=== PATIENT | female | born 2000 | race Caucasian/White ===

== ENCOUNTER 2020-10-16 16:14 | Emergency (ER) | payer OTHER, MEDICAID, SELFPAY ==
[2020-10-16 16:15] VITALS: BP 113/72; PULSE 72; RESP 18; TEMP 36.7; O2SAT 94; BMI 22.3
--- NOTE | 2020-10-16 17:20 | EX.ED.GENINJ ---
HPI History of Present Illness Chief Complaint: Fall Informant: patient Onset/Context/Timing Onset: Today Mechanism/Context: Fall Narrative Narrative: Patient is a 19-year-old female presenting with left-sided rib pain. Around 1 PM today she tripped after she was trying to avoid stepping on her cat and landed on her coffee table. She had her left ribs. Since then she is had significant pain. She has not taken anything for pain. It is worse when she moves or takes a deep breath. Denies hitting her head. No other injuries reported. Is not on any blood thinners. Is not concerned for . PFSH PFSH Medical History Anxiety Former smoker Home Medications ibuprofen 600 mg PO Q6H PRN PRN #20 tab 10/16/20 [Rx Last Taken Unknown] lidocaine 1 patch TOPICAL DAILY PRN #10 ea 10/16/20 [Rx Last Taken Unknown] [id number]-vit K [Multi For Her] 1 tab-cap PO DAILY 10/16/20 [History Last Taken Unknown] Allergy/AdvReac Type Severity Reaction Status Date / Time No Known Allergies Allergy Verified 10/16/20 16:18 Social History Smoking Status: Former smoker ROS ROS ED Constitutional Constitutional ED: Denies chills or fever(s) Eyes Eyes: Denies change in vision ENT ENT ED: Denies rhinorrhea or sore throat Cardiovascular Cardiovascular: Reports chest pain; Denies palpitations Respiratory/Chest Respiratory/Chest: Denies cough or dyspnea Gastrointestinal Gastrointestinal: Denies abdominal pain or nausea Musculoskeletal Musculoskeletal: Denies arthralgias or myalgias Integumentary Denies Abrasions or rash Neurologic Neurologic: Denies headache(s) EXAM Physical Exam Const Vital Signs: 10/16/20 16:15 10/16/20 17:01 10/16/20 18:45 Temperature 98.1 F Temperature Source Temporal Pulse Rate 72 79 Respiratory Rate 18 16 Respiratory Effort Normal Respiratory Depth Normal Respiratory Pattern Normal Blood Pressure 113/72 124/78 H Blood Pressure Mean 85 Pulse Ox 94 97 Oxygen Delivery Method Room Air Room Air Positive well nourished and well developed General Appearance ED: well developed HEENT atraumatic; Negative for tenderness Eyes PERRL and EOMs intact bilaterally Neck full ROM Chest Wall inspection of chest normal Chest Narrative: Significant tenderness palpation of the left lower anterior and mid axillary line ribs. No crepitus of the chest wall appreciated. No flail chest appreciated. Resp normal respiratory effort and clear to auscultation bilaterally Auscultation: Negative for diminished lung sounds Cardio regular rhythm and no murmurs Rate: regular rate GI normal to inspection, nondistended, normoactive bowel sounds Back/Spine normal to inspection and no thoracic nor lumbar tenderness General Back: Negative for CVA tenderness Extremity normal to inspection and full ROM Neuro oriented x3, CN's II-XII intact bilaterally and no focal motor deficits Sensorium / Orientation: alert Psych mental status grossly normal Skin Skin Narrative: Subtle developing bruising to the left ribs in area of pain MDM MDM MDM Narrative Medical decision making narrative: Patient is evaluated for left-sided rib pain. X-ray interpreted myself as well as radiology does not show any acute process including fracture. Is possible she could have a small fracture is not showing up versus rib contusion. She will be treated with NSAIDs, Lidoderm patches and incentive spirometer. Counseled on the risk of pneumonia. Counseled that the treatment is pain control and deep breathing. Patient given return precautions. Discharged home in stable condition. Radiography X-Ray: Read by ED Physician, Read by Radiologist and No Fracture Diagnostic Testing: Radiology Impression Ribs w/Chest X-Ray 10/16/20 17:25 IMPRESSION: RIBS: Normal x-ray examination of the ribs. CHEST: Normal x-ray examination of the chest. Electronically Signed: Rogelio Castro MD at 18:06 EDT , Service support , Discharge Plan Triage Chief Complaint: Fall ED Provider: Payton Garcia Dx/Rx/DC Orders Clinical Impression: Contusion of rib on left side Instructions: ED Contusion, Rib Prescriptions: New lidocaine 4 % adhesive patch,medicated 1 patch topical DAILY PRN (Reason: pain) Qty: 10 RF: 0 ibuprofen 600 mg tablet 600 mg PO Q6H PRN PRN (Reason: Pain Score 1-10/10) Qty: 20 RF: 0 No Action Multi For Her 18 mg iron-600 mcg-40 mcg Capsule 1 tab-cap PO DAILY RF: 0 Stand Alone Forms: ED Work / School Excuse, Work Status Form Primary Care Provider: Care Physician,No Primary Referrals: Marisela Sahu DO [STAFF PHYSICIAN] - Care Physician,No Primary [Primary Care Provider] - Disposition Disposition: Home, Self Care Discharge Date/Time: 10/16/20 18:46
--- NOTE | 2020-10-16 17:25 | RAD_ITS ---
STUDY: X-RAY - UNILATERAL RIBS ( LEFT ) WITH CHEST REASON FOR EXAM: Female, 19 years old. left rib injury TECHNIQUE - RIBS: 4 view(s) of the ribs. TECHNIQUE - CHEST: Single frontal view of the chest. COMPARISON: None. FINDINGS - RIBS: Normal visualized ribs without a demonstrated fracture. FINDINGS - CHEST: The lungs are clear and expanded. There is no demonstrated pleural abnormality. Normal size heart. Normal mediastinum and tomas. Normal visualized pulmonary arteries. Normal visualized aortic arch and descending thoracic aorta. Normal visualized thoracic spine. Normal visualized ribs, clavicles, and shoulders. There is no demonstrated abnormality of the visualized soft tissue structures of the upper abdomen. RAD/Ribs Uni Min 3V w/PA Chest IMPRESSION: RIBS: Normal x-ray examination of the ribs. CHEST: Normal x-ray examination of the chest. Electronically Signed: Rogelio Castro MD at 18:06 EDT , Service support ,
[2020-10-16] MEDS: Ibuprofen 600 MG Tablet PO (18:05)
[2020-10-16] MEDS: Lidocaine 5% Patch 1 PATCH TOPICAL (18:06)
[2020-10-16 18:45] VITALS: BP 124/78; PULSE 79; RESP 16; O2SAT 97
--- NOTE | 2020-10-16 18:46 | ED.RN ---
THIS NURSE REVIEWED D/C INSTRUCTIONS WITH PT. PT VERBALIZED UNDERSTANDING OF INSTRUCTIONS. PT DENIES FURTHER NEEDS OR QUESTIONS AT THIS TIME
== END 2020-10-16 18:46 | disposition home or self-care (01) ==
PROVIDERS: Emergency Provider Emergency Medicine
DX: S20.212A Contusion of left front wall of thorax, initial encounter (principal); W18.40XA Slipping, tripping and stumbling without falling, unspecified, initial encounter
CPT/HCPCS: 71101; 99284

== ENCOUNTER 2021-11-10 12:31 | Emergency (ER) | payer OTHER, MEDICAID, SELFPAY ==
[2021-11-10 12:33] VITALS: BP 115/56; PULSE 95; RESP 16; TEMP 38.3; O2SAT 98; BMI 25.7
[2021-11-10 12:35] VITALS: BP 115/56; PULSE 95; RESP 16; TEMP 38.3; O2SAT 98
[2021-11-10] MEDS: Ketorolac 60 MG/2 ML Vial IM (14:11)
[2021-11-10] MEDS: Ondansetron ODT 4 MG Tablet PO (14:12)
--- NOTE | 2021-11-10 14:17 | EX.ED.DYSGE1 ---
HPI History of Present Illness Chief Complaint: Headache Informant: patient Narrative Narrative: 21-year-old female presenting to the emergency room with body aches. She tells me that she became symptomatic yesterday with a headache little bit of a sinus infection and eventually progressed to whole body aches. She states she has had COVID 2 previous times and never felt like this. She denies vomiting and diarrhea. She does note some nausea. PFSH PFSH Medical History Anxiety Former smoker Home Medications ibuprofen 600 mg tablet 600 mg PO Q6H PRN PRN Pain Score 1-10/10 #20 tabs 10/16/20 [Rx Last Taken Unknown] lidocaine 4 % topical patch 1 patch topical DAILY PRN pain #10 ea 10/16/20 [Rx Last Taken Unknown] [id number]-[id number] fumarate 18 mg-FA 600 mcg-vit K 40 mcg capsule (Multi For Her) 1 tab-cap PO DAILY 10/16/20 [History Last Taken Unknown] ondansetron HCl 4 mg tablet 4 mg PO Q6H PRN nausea and vomiting #15 tabs 11/10/21 [Rx Last Taken Unknown] Allergy/AdvReac Type Severity Reaction Status Date / Time No Known Allergies Allergy Verified 11/10/21 12:36 Social History (Updated 11/10/21 @ 14:[address] Delta Ardon, DO) Smoking Status: Former smoker substance use type: does not use ROS ROS ED Constitutional Constitutional ED: Reports fever(s) and sweats; Denies chills or weight loss Eyes Eyes: Denies change in vision or diplopia ENT ENT ED: Reports rhinorrhea; Denies ear pain or sore throat Cardiovascular Cardiovascular: Denies chest pain, orthopnea, palpitations or racing heartbeat Respiratory/Chest Respiratory/Chest: Denies cough, dyspnea or orthopnea Gastrointestinal Gastrointestinal: Denies abdominal pain, diarrhea, nausea or vomiting Genitourinary Genitourinary ED: Denies dysuria, hematuria or urinary frequency Musculoskeletal Musculoskeletal: Reports arthralgias and myalgias Integumentary Denies abscess or rash Neurologic Neurologic: Reports headache(s); Denies weakness Psychiatric Psychiatric: Denies anxiety, depression, suicidal ideation or suicidal thoughts Endocrine Endocrinology: Denies polydipsia, polyphagia or polyuria Allergic/Immunologic Allergic/Immunologic ED: Denies mouth swelling, tongue swelling or urticaria EXAM Physical Exam Const Vital Signs: 11/10/21 12:33 11/10/21 12:35 Temperature 101 F H 101 F H Temperature Source Temporal Temporal Pulse Rate 95 95 Respiratory Rate 16 16 Blood Pressure 115/56 L 115/56 L Blood Pressure Mean 75 75 Pulse Ox 98 98 Oxygen Delivery Method Room Air Room Air Positive well nourished and well developed General Appearance ED: well developed HEENT Reports normocephalic, head/scalp atraumatic and moist mucous membranes Eyes PERRL and EOMs intact bilaterally Neck no lymphadenopathy, supple and no JVD Resp normal respiratory effort and clear to auscultation bilaterally Cardio regular rate, regular rhythm and no murmurs GI normal to inspection, nondistended, normoactive bowel sounds and non-tender Palpation: soft Back/Spine no CVA tenderness and normal ROM Extremity normal to inspection General Extremety ED: Negative for edema General Extremity: Negative for edema Neuro oriented x3 and CN's II-XII intact bilaterally Sensorium / Orientation: alert Motor Exam: strength 5/5 throughout Psych mental status grossly normal Mood & Affect: Negative for depressed or tearful Skin no rashes or lesions noted and no wounds MDM MDM MDM Narrative Medical decision making narrative: Patient tested positive for COVID-19. We administered Toradol for pain and Zofran for nausea. I will write for some Zofran at home. Recommend Tylenol Motrin rest. Return if worsening or concerns Discharge Plan Triage Chief Complaint: Headache ED Provider: Delta Ardon Dx/Rx/DC Orders Clinical Impression: COVID-19, Headache, Myalgia, Nausea Instructions: ED Viral Syndrome (Adult) Prescriptions: New ondansetron HCl 4 mg tablet 4 mg PO Q6H PRN (Reason: nausea and vomiting) Qty: 15 0RF No Action Multi For Her 18 mg iron-600 mcg-40 mcg Capsule 1 tab-cap PO DAILY lidocaine 4 % adhesive patch,medicated 1 patch topical DAILY PRN (Reason: pain) Qty: 10 0RF ibuprofen 600 mg tablet 600 mg PO Q6H PRN PRN (Reason: Pain Score 1-10/10) Qty: 20 0RF Primary Care Provider: Lucy Carrillo NP Referrals: Lucy Carrillo NP, [facility] [Primary Care Provider] - As Needed Disposition Disposition: Home, Self Care
== END 2021-11-10 14:26 | disposition home or self-care (01) ==
PROVIDERS: Emergency Provider Emergency Medicine; PCP Nurse Practitioner Family; Visit Provider Emergency Medicine
DX: U07.1 COVID-19 (principal); R51.9 Headache, unspecified; R11.0 Nausea; Z87.891 Personal history of nicotine dependence
CPT/HCPCS: 87428; 96372; 99283

== ENCOUNTER 2023-10-29 04:14 | Emergency (ER) | payer MEDICAID, SELFPAY ==
[2023-10-29 04:14] VITALS: BP 134/97; PULSE 73; RESP 14; TEMP 36.7; O2SAT 98
[2023-10-29] MEDS: DiphenhydrAMINE 50 MG/ML Syringe 25 MG IV (04:39)
[2023-10-29] MEDS: proCHLORPERazine 10 MG/2 ML Vial IV (04:40)
[2023-10-29 04:41] LABS: Absolute Neutrophil Count 3.3 X10^3/uL (2.0-7.7); Basophil# 0.14 X10^3/uL; Basophil% 1.4 % (0-1); Eosinophil# 0.59 X10^3/uL; Eosinophils% 6.1 % (0-5); Hematocrit 41.6 % (37-47); Hemoglobin 13.6 g/dL (12.0-15.0); Lymphocyte % 50.3 % (19-41); Mean Corp Hgb Conc 32.7 g/dL (32-36); Mean Corpuscular Hgb 28.3 pg (27.0-32.0); Mean Corpuscular Volume 86.5 fL (81-99); Mean Platelet Vol. 11.7 fl (6.2-12.0); Monocyte# 0.82 X10^3/uL; Monocyte% 8.4 % (0-10); NRBC Flagged by Analyzer 0 % (0-5); Neutrophil # 3.27 X10^3/uL (2.7-7.7); Neutrophil % 33.6 % (47-70); Platelet Count 248 K/mm3 (150-450); RBC Distribution Width CV 12.9 % (11.6-14.6); RBC Distribution Width SD 40.6 fl (35.1-43.9); Red Blood Count 4.81 M/mm3 (4.2-5.4); White Blood Count 9.7 K/mm3 (4.4-11.0)
[2023-10-29] MEDS: 0.9% Normal Saline (1000mL) 1,000 ML 999 ML IV (04:41)
[2023-10-29 05:02] LABS: Internal QC Validated? YES +Cl - CLEAR BKGD; Pregnancy, Serum, hCG Quali. NEGATIVE Negative
[2023-10-29 05:07] LABS: AST(SGOT) 12 U/L (15-37); Alanine Aminotransfer ALT/SGPT 16 U/L (13-56); Albumin, Serum 4.1 g/dL (3.2-5.0); Alkaline Phosphatase 59 U/L (45-117); Anion Gap 8 (5-15); BUN 13 mg/dL (7-18); BUN/Creat Ratio 12.5 RATIO (10-20); Bilirubin, Direct 0.17 mg/dL (0.00-0.30); Calcium,Total 9.4 mg/dL (8.5-10.1); Chloride 107 mmol/L (98-107); Creatinine, Serum 1.04 mg/dL (0.55-1.02); EST Glomerular Filtration Rate 69 mL/min (>60); Est Glom Filt Rate - Afr Amer 84 mL/min (>60); Glucose 117 mg/dL (74-106); Lipase 29 U/L (13-75); Magnesium 2.1 mg/dL (1.6-2.6); Potassium 3.8 mmol/L (3.5-5.1); Protein, Total 8.1 g/dL (6.4-8.2); Sodium Level 137 mmol/L (136-145)
--- NOTE | 2023-10-29 05:44 | EDS_ITS ---
HPI History of Present Illness Chief Complaint: Nausea/Vomiting Informant: patient Narrative Narrative: Patient is a 22-year-old female with past medical history of anxiety and GERD. She states she does not take any medications for her GERD. She reports that she would also self medicate her anxiety with marijuana smoking daily. She states that she decided she did not want to do this any longer and stop smoking marijuana 3 days ago. She states that this evening she developed generalized abdominal discomfort and has had bouts of nausea and vomiting. With this she also has had shaking chills. She denies any known sick contacts but has concern that her symptoms could be related to her recent cessation of smoking and therefore comes in for evaluation [facility] Medical History Anxiety Former smoker Home Medications ?Medication ?Instructions ?Recorded ?Last Taken ?Type dicyclomine 20 mg tablet 20 mg PO 4X/DAY PRN Abdominal 10/29/23 Unknown Rx pain/spasm 7 days #28 tabs promethazine 25 mg tablet 25 mg PO TID PRN nausea and 10/29/23 Unknown Rx vomiting 7 days #21 tabs Allergy/AdvReac Type Severity Reaction Status Date / Time No Known Allergies Allergy Verified 10/29/23 04:15 Social History (Updated 11/10/21 @ 14:[address] Delta Ardon, DO) Smoking Status: Former smoker substance use type: does not use ROS ROS ED Constitutional Constitutional ED: Reports chills and subjective ENT ENT ED: Denies sore throat Cardiovascular Cardiovascular: Denies chest pain Respiratory/Chest Respiratory/Chest: Denies cough or dyspnea Gastrointestinal Gastrointestinal: Reports abdominal pain, nausea and vomiting; Denies constipation or diarrhea Genitourinary Genitourinary ED: Denies dysuria or hematuria Musculoskeletal Musculoskeletal: Reports myalgias Integumentary Denies rash Neurologic Neurologic: Denies headache(s) Psychiatric Psychiatric: Reports anxiety Hematologic/Lymphatic Hematologic/Lymphatic: Denies easy bleeding or easy bruising Allergic/Immunologic Allergic/Immunologic ED: Denies mouth swelling or tongue swelling EXAM Physical Exam Const Vital Signs: 10/29/23 04:14 Temperature 98.1 F Temperature Source Temporal Pulse Rate 73 Respiratory Rate 14 Blood Pressure 134/97 H Blood Pressure Mean 109 Pulse Ox 98 Oxygen Delivery Method Room Air Positive well nourished and well developed General Appearance ED: well developed; Negative for pallor HEENT Reports moist mucous membranes HEENT Narrative: No tongue or lip swelling no oral lesions no airway edema or compromise No secondary findings in the posterior pharynx to suggest infection Eyes PERRL and EOMs intact bilaterally General Eye ED: Negative for scleral icterus Neck supple Neck Narrative: No nuchal rigidity or meningeal signs noted Resp normal respiratory effort and clear to auscultation bilaterally Cardio regular rate and regular rhythm Rate: other Other Details: Heart is regular rate and rhythm without murmurs rubs or gallops Radial and carotid pulses are equal and symmetric GI non-distended and no masses GI Narrative: Abdomen is soft and nondistended with hyperactive bowel sounds. There is mild generalized/diffuse pain with palpation without voluntary guarding or rigidity. Negative Gomez sign. No pain over McBurney's point. Auscultation: hyperactive bowel sounds Palpation: soft Extremity normal to inspection Neuro oriented x3, CN's II-XII intact bilaterally and no sensory deficits noted Sensorium / Orientation: alert Motor Exam: strength 5/5 throughout Psych Mood & Affect: anxious Skin no rashes or lesions noted, no wounds and skin turgor normal General Skin Exam: Negative for jaundice or pallor MDM MDM MDM Narrative Medical decision making narrative: Patient arrived to the ER with stable vitals and a soft nonsurgical abdomen and therefore I felt no need for emergent imaging studies. Differential diagnosis is for viral infection such as [place] virus versus rotavirus. There is potential for cannabis hyperemesis syndrome. There is also concern for acute pancreatitis versus biliary colic or acute cholecystitis. Therefore basic labs were obtained. Patient's lipase is normal going against acute pancreatitis and liver enzymes are normal going against biliary colic or acute cholecystitis. The patient does not have any signs of acute kidney injury or clinically significant electrolyte abnormality. Her neutrophil count is low and lymphocyte count elevated and this is most consistent with a viral stomach infection. She is afebrile with normal white count without left shift and therefore do not feel there is need for imaging study at this time. After IV hydration and treatment with Compazine patient had no further bouts of vomiting and on reevaluation her abdomen remains soft and nonsurgical. Therefore do not feel there is need for further workup in the ER patient can be discharged home with symptomatic care History & Record Review Discussion w/independent historian: Patient Lab Data Attestation: I reviewed the patient's lab results. Labs: Laboratory Results - last 24 hr 10/29/23 04:19 WBC 9.7 RBC 4.81 Hgb 13.6 Hct 41.6 MCV 86.5 MCH 28.3 MCHC 32.7 RDW Std Deviation 40.6 RDW Coeff of Kemi 12.9 Plt Count 248 MPV 11.7 Immature Gran % (Auto) 0.200 Neut % (Auto) 33.6 L Lymph % (Auto) 50.3 H Stark % (Auto) 8.4 Eos % (Auto) 6.1 H Baso % (Auto) 1.4 H Absolute Neuts (auto) 3.3 Absolute Lymphs (auto) 4.90 H Nucleated RBC % 0 Sodium 137 Potassium 3.8 Chloride 107 Carbon Dioxide 22.0 Anion Gap 8 BUN 13 Creatinine 1.04 H Est GFR (MDRD) Af Amer 84 Est GFR (MDRD) Non-Af 69 BUN/Creatinine Ratio 12.5 Glucose 117 H Calcium 9.4 Magnesium 2.1 Total Bilirubin 0.50 Direct Bilirubin 0.17 AST 12 L ALT 16 Alkaline Phosphatase 59 Total Protein 8.1 Albumin 4.1 Globulin 4.0 Lipase 29 Serum , Qual NEGATIVE Discharge Plan Triage Chief Complaint: Nausea/Vomiting ED Provider: Zhou Stephens Dx/Rx/DC Orders Clinical Impression: Nausea & vomiting, Anxiety Instructions: ED Gastroenteritis, Viral (Adult), ED Vomiting (Adult) Prescriptions: New dicyclomine 20 mg tablet 20 mg PO 4X/DAY PRN (Reason: Abdominal pain/spasm) 7 Days Qty: 28 0RF promethazine 25 mg tablet 25 mg PO TID PRN (Reason: nausea and vomiting) 7 Days Qty: 21 0RF Primary Care Provider: Lucy Carrillo NP Referrals: Lucy Carrillo NP, [facility] [Primary Care Provider] - Activity Restrictions/Additional Instructions: Your history exam and workup indicate you have a viral stomach infection. This will last anywhere from 24 hours to 7 days with the average being 3 days. Take the prescribed medication as directed to help control symptoms and keep yourself well-hydrated. Return to the ER should you have any further concerns Print Language: Bulgarian Disposition Disposition: Home, Self Care
[2023-10-29 05:57] VITALS: BP 113/67; PULSE 71; RESP 16; TEMP 37.1; O2SAT 99
== END 2023-10-29 06:00 | disposition home or self-care (01) ==
PROVIDERS: Emergency Provider Emergency Medicine; PCP Nurse Practitioner Family; Visit Provider Emergency Medicine
DX: R11.2 Nausea with vomiting, unspecified (principal); F41.9 Anxiety disorder, unspecified; F12.90 Cannabis use, unspecified, uncomplicated; Z87.891 Personal history of nicotine dependence
CPT/HCPCS: 80048; 80076; 83690; 83735; 84703; 85025; 96374; 96375; 96376; 99283; J7030; A4216

== ENCOUNTER 2023-11-02 03:06 | Emergency (ER) | payer MEDICAID, SELFPAY ==
[2023-11-02 03:06] VITALS: BP 122/83; PULSE 79; RESP 18; TEMP 37.1; O2SAT 100; BMI 25.7
--- NOTE | 2023-11-02 03:37 | ED.VIS.GI ---
HPI HPI - GI History of Present Illness Chief Complaint: Nausea/Vomiting Informant: patient Abdominal Pain/Flank Pain Onset: Days (5) Context: Gradual Onset Timing: Continuous Quality: Aching Location: Diffuse Nausea/Vomiting/Emesis GI Symptom: Positive for Nausea and Vomiting Quality: Positive for Nonbilious; Negative for Blood streaks, Coffee ground or Hematemesis Diarrhea/Melena/Hematochezia GI Symptom: Negative for Diarrhea Associated Symptoms Associated Symptoms: Negative for Dysuria, Frequency or Hematuria Narrative Narrative: Patient presents with nausea and vomiting that has been constant over the last 5 days. Patient states she is unable to keep anything down. Patient states she was seen here 5 days ago and was given prescriptions for Bentyl and Phenergan. Patient states she has not been able to keep any of her medications down. Patient states she has not been able to eat or drink anything. Patient admits to diffuse abdominal pain. Patient describes it as aching. Patient states he gets worse with certain movements. Patient states nothing makes her symptoms any better. Patient admits to some subjective chills. Patient also admits to some intermittent blurry vision. Patient states her stools have been darker but she denies any diarrhea. Patient denies any hematemesis or coffee-ground emesis. Patient denies any urinary complaints. PFSH PFSH Medical History IBS (irritable bowel syndrome) Depression GERD (gastroesophageal reflux disease) Anxiety Former smoker Home Medications ?Medication ?Instructions ?Recorded ?Last Taken ?Type dicyclomine 20 mg tablet 20 mg PO 4X/DAY PRN Abdominal 10/29/23 Unknown Rx pain/spasm 7 days #28 tabs promethazine 25 mg tablet 25 mg PO TID PRN nausea and 10/29/23 Unknown Rx vomiting 7 days #21 tabs ondansetron 4 mg disintegrating 4 mg PO Q8H PRN PRN Nausea #10 tabs 11/02/23 Unknown Rx tablet Allergy/AdvReac Type Severity Reaction Status Date / Time No Known Allergies Allergy Verified 11/02/23 03:07 Surgical History no surgical history no surgical history Social History Smoking Status: Former smoker substance use type: does not use ROS ROS ED Constitutional Constitutional ED: Reports chills and subjective; Denies fever(s) Eyes Eyes: Reports blurry vision ENT ENT ED: Denies rhinorrhea or sore throat Cardiovascular Cardiovascular: Denies chest pain or palpitations Respiratory/Chest Respiratory/Chest: Denies cough or dyspnea Gastrointestinal Gastrointestinal: Reports abdominal pain, nausea and vomiting; Denies diarrhea Genitourinary Genitourinary ED: Denies dysuria or hematuria Musculoskeletal Musculoskeletal: Reports back pain; Denies neck pain Integumentary Denies abscess or rash Neurologic Neurologic: Denies headache(s) or weakness Allergic/Immunologic Allergic/Immunologic ED: Denies mouth swelling or urticaria EXAM Physical Exam Const Vital Signs: 11/02/23 03:06 11/02/23 05:06 11/02/23 05:16 Temperature 98.7 F Temperature Source Oral Pulse Rate 79 80 Pulse Rate [Lying] 59 L Pulse Rate [Sitting (for 1 minute prior to obtaining)] 61 Pulse Rate [Standing (for 1 minute prior to obtaining)] 98 Respiratory Rate 18 18 Blood Pressure 122/83 H 108/64 Blood Pressure [Lying] 105/72 Blood Pressure [Sitting (for 1 minute prior to obtaining)] 123/88 H Blood Pressure [Standing (for 1 minute prior to obtaining)] 134/91 H Blood Pressure Mean 96 78 Blood Pressure Mean [Lying] 83 Blood Pressure Mean [Sitting (for 1 minute prior to obtaining)] 99 Blood Pressure Mean [Standing (for 1 minute prior to obtaining)] 105 Pulse Ox 100 99 Oxygen Delivery Method Room Air Room Air Positive well nourished and well developed General Appearance ED: well developed and NAD HEENT Reports moist mucous membranes Neck supple and no JVD Resp normal respiratory effort and clear to auscultation bilaterally Cardio regular rate and regular rhythm GI non-distended Palpation: soft and tender epigastric, LLQ, RLQ, LUQ, RUQ, periumbilical and suprapubic; Negative for guarding or rebound tenderness present Extremity full ROM General Extremety ED: Negative for edema or tenderness General Extremity: Negative for edema Neuro CN's II-XII intact bilaterally, moves all extremities and no sensory deficits noted Sensorium / Orientation: alert Motor Exam: strength 5/5 throughout Psych mental status grossly normal MDM MDM MDM Narrative Medical decision making narrative: Differential diagnosis includes gastroenteritis, , urinary tract infection, bowel obstruction, perforation, diverticulitis, colitis, pancreatitis, and IBS. CBC will be obtained to assess for leukocytosis and anemia. Comprehensive metabolic profile will be obtained to assess for hepatic function, renal function, and electrolyte abnormality. Lipase will be obtained to assess for pancreatitis. Urinalysis will be obtained to assess for urinary tract infection and hematuria. Serum hCG will be obtained to assess for . Lab Data Attestation: I reviewed the patient's lab results. Lab results narrative: CBC was reviewed and was within normal limits. Comprehensive metabolic profile was reviewed and was essentially within normal limits. Lipase was reviewed and was normal at 28. Serum hCG was reviewed and was negative. Urinalysis was reviewed. There is no evidence of urinary tract infection or hematuria. Labs: Laboratory Results - last 24 hr 11/02/23 11/02/23 03:45 04:00 WBC 7.9 RBC 5.31 Hgb 14.9 Hct 44.0 MCV 82.9 MCH 28.1 MCHC 33.9 RDW Std Deviation 38.1 RDW Coeff of Kemi 12.8 Plt Count 257 MPV 11.6 Immature Gran % (Auto) 0.300 Neut % (Auto) 56.0 Lymph % (Auto) 30.7 Mcdonald % (Auto) 9.1 Eos % (Auto) 2.4 Baso % (Auto) 1.5 H Absolute Neuts (auto) 4.4 Absolute Lymphs (auto) 2.43 Nucleated RBC % 0 Sodium 136 Potassium 3.5 Chloride 107 Carbon Dioxide 20.0 L Anion Gap 9 BUN 15 Creatinine 0.98 Estim Creat Clear Calc 84.62 Est GFR (MDRD) Af Amer 90 Est GFR (MDRD) Non-Af 74 BUN/Creatinine Ratio 15.3 Glucose 110 H Calcium 9.6 Total Bilirubin 1.20 H AST 13 L ALT 11 L Alkaline Phosphatase 54 Total Protein 8.7 H Albumin 4.4 Globulin 4.3 H Albumin/Globulin Ratio 1.0 Lipase 28 Serum , Qual NEGATIVE Urine Color Yellow Urine Clarity Clear Urine pH 6.0 Ur Specific [place] 1.010 Urine Protein Negative Urine Glucose (UA) Normal Urine Ketones 50 H Urine Occult Blood 10 H Urine Nitrite Negative Urine Bilirubin Negative Urine Urobilinogen Normal Ur Leukocyte Esterase Negative Urine RBC 0 SEEN Urine WBC 0 SEEN Ur Squamous Epith Cells 0 SEEN Urine Bacteria 0 SEEN Urine Mucus 0 SEEN Treatment and Re-Evaluation :: Patient was given IV fluids, morphine, and Zofran. Patient is feeling better on reevaluation. Orthostatic vital signs were obtained. Patient's heart rate did increase with standing from a seated position. Patient was given a second liter of normal saline. Patient was instructed to start with a clear liquid diet and advance as tolerated. Patient was given a prescription for Zofran ODT tablets. Patient was instructed to follow-up with her primary care physician in 5 to 7 days. Patient was instructed return if worse in any way. Patient understood and was agreeable with the plan. All questions were answered. Discharge Plan Triage Chief Complaint: Nausea/Vomiting ED Provider: Chay Wilcox Dx/Rx/DC Orders Clinical Impression: Nausea & vomiting, IBS (irritable bowel syndrome) Instructions: ED Vomiting (Adult) Prescriptions: New ondansetron 4 mg tablet,disintegrating 4 mg PO Q8H PRN PRN (Reason: Nausea) Qty: 10 0RF No Action dicyclomine 20 mg tablet 20 mg PO 4X/DAY PRN (Reason: Abdominal pain/spasm) 7 Days Qty: 28 0RF promethazine 25 mg tablet 25 mg PO TID PRN (Reason: nausea and vomiting) 7 Days Qty: 21 0RF Primary Care Provider: Lucy Carrillo NP Referrals: Lucy Carrillo NP, [employer] [Primary Care Provider] - 5-7 Days Print Language: Kinyarwanda Disposition Disposition: Home, Self Care
[2023-11-02] MEDS: Ondansetron 4 MG/2 ML Vial IV (03:52)
[2023-11-02] MEDS: 0.9% Normal Saline (1000mL) 1,000 ML 999 ML IV (03:52)
[2023-11-02 03:53] LABS: Absolute Lymphocyte Count 2.43 X10^3/uL (0.83-4.51); Absolute Neutrophil Count 4.4 X10^3/uL (2.0-7.7); Basophil# 0.12 X10^3/uL; Basophil% 1.5 % (0-1); Eosinophil# 0.19 X10^3/uL; Eosinophils% 2.4 % (0-5); Hemoglobin 14.9 g/dL (12.0-15.0); Lymphocyte # 2.43 X10^3/ul (0.83-4.51); Lymphocyte % 30.7 % (19-41); Mean Corp Hgb Conc 33.9 g/dL (32-36); Mean Corpuscular Hgb 28.1 pg (27.0-32.0); Mean Corpuscular Volume 82.9 fL (81-99); Mean Platelet Vol. 11.6 fl (6.2-12.0); Monocyte# 0.72 X10^3/uL; Monocyte% 9.1 % (0-10); NRBC Flagged by Analyzer 0 % (0-5); Neutrophil # 4.43 X10^3/uL (2.7-7.7); Platelet Count 257 K/mm3 (150-450); RBC Distribution Width CV 12.8 % (11.6-14.6); RBC Distribution Width SD 38.1 fl (35.1-43.9); Red Blood Count 5.31 M/mm3 (4.2-5.4); White Blood Count 7.9 K/mm3 (4.4-11.0)
[2023-11-02 04:00] LABS: Internal QC Validated? YES +Cl - CLEAR BKGD; Pregnancy, Serum, hCG Quali. NEGATIVE Negative
[2023-11-02 04:06] LABS: Bacteria 0 SEEN /hpf (None Seen); Mucous, Urine 0 SEEN /hpf (<or=2+); Red Blood Cells-Urine 0 SEEN /hpf (0-5); Squamous Epithelial Cells - UA 0 SEEN /hpf (5-10); White Blood Cells 0 SEEN /hpf (0-5)
[2023-11-02 04:07] LABS: Color, Urine Yellow (Yellow); Glucose, Dipstick Normal (Normal); Ketone-Dipstick 50 mg/dl (Negative); Leukocyte Esterase-Dipstick Negative /ul (Negative); Nitrite-Dipstick Negative (Negative); Occult Blood-Urine 10 /ul (Negative); Protein-Dipstick Negative (Negative); Urine Bilirubin Dipstick Negative (Negative); Urine Clarity Clear (Clear); Urine Urobilinogen Normal (Normal)
[2023-11-02 04:10] LABS: AST(SGOT) 13 U/L (15-37); Alanine Aminotransfer ALT/SGPT 11 U/L (13-56); Albumin, Serum 4.4 g/dL (3.2-5.0); Alkaline Phosphatase 54 U/L (45-117); Anion Gap 9 (5-15); BUN 15 mg/dL (7-18); BUN/Creat Ratio 15.3 RATIO (10-20); Calcium,Total 9.6 mg/dL (8.5-10.1); Chloride 107 mmol/L (98-107); Creatinine, Serum 0.98 mg/dL (0.55-1.02); EST Glomerular Filtration Rate 74 mL/min (>60); Est Glom Filt Rate - Afr Amer 90 mL/min (>60); Estimated Creatinine Clearance 84.62 ml/min; Globulin 4.3 g/dL (2.2-4.2); Glucose 110 mg/dL (74-106); Lipase 28 U/L (13-75); Potassium 3.5 mmol/L (3.5-5.1); Protein, Total 8.7 g/dL (6.4-8.2); Sodium Level 136 mmol/L (136-145)
[2023-11-02 05:06] VITALS: BP 108/64; PULSE 80; RESP 18; O2SAT 99
[2023-11-02 05:16] VITALS: BP 105/72; BP 123/88; BP 134/91; PULSE 59; PULSE 61; PULSE 98
[2023-11-02] MEDS: 0.9% Normal Saline (1000mL) 1,000 ML 1000 ML IV (05:43)
[2023-11-02 06:46] VITALS: BP 102/47; PULSE 52; RESP 18; TEMP 37.1; O2SAT 100
== END 2023-11-02 06:47 | disposition home or self-care (01) ==
PROVIDERS: Emergency Provider Emergency Medicine; PCP Nurse Practitioner Family; Visit Provider Emergency Medicine
DX: R11.2 Nausea with vomiting, unspecified (principal); Z87.891 Personal history of nicotine dependence; K58.9 Irritable bowel syndrome, unspecified; Z79.899 Other long term (current) drug therapy
CPT/HCPCS: 80053; 81001; 83690; 84703; 85025; 96361; 96374; 96376; 99284; J7030; A4216; J2405